=== PATIENT | female | born 1945 | race Caucasian/White ===

== ENCOUNTER 2017-09-18 04:48 | Outpatient (CLI) | payer MEDICARE, MEDICAID ==
[~2017-09-18 04:48] MED LIST: CITA20TA11 PO; GABA300C PO; GEMF600T3 PO; HCTZ25T PO; HYDR1TAB PO; LEVO75TA57 PO; LIT300C PO; LOSA50TA3 PO; PRAV40TA3 PO
== END 2017-09-18 23:59 | disposition home or self-care (01) ==
LOC: DIABETIC 04:48
PROVIDERS: ATTEND Internal Medicine
DX: E11.9 Type 2 diabetes mellitus without complications (principal)
CPT/HCPCS: G0108

== ENCOUNTER 2017-12-20 01:21 | Outpatient (CLI) | payer MEDICARE, MEDICAID ==
[~2017-12-20 01:21] MED LIST changes: +CITA-278 PO; -CITA20TA11 PO
== END 2017-12-20 23:59 | disposition home or self-care (01) ==
LOC: DIABETIC 01:21
PROVIDERS: ATTEND Internal Medicine
DX: E11.65 Type 2 diabetes mellitus with hyperglycemia (principal); I11.0 Hypertensive heart disease with heart failure; I50.9 Heart failure, unspecified
CPT/HCPCS: G0108

== ENCOUNTER 2018-04-03 08:32 | Emergency (ER) | payer MEDICARE, MEDICAID ==
[~2018-04-03] VITALS: Ht 167.6 cm; Wt 69.2 kg
[~2018-04-03 08:32] MED LIST changes: -GEMF600T3 PO; +GEMF600T4 PO
[2018-04-03 08:34] VITALS: BP 130/72
[2018-04-03] MEDS ORDERED: ACET1TAB12 PO (10:15)
== END 2018-04-03 10:27 | disposition home or self-care (01) ==
LOC: ER 08:33
DX: S09.90XA Unspecified injury of head, initial encounter (principal); M54.2 Cervicalgia; M54.9 Dorsalgia, unspecified; E11.42 Type 2 diabetes mellitus with diabetic polyneuropathy; E78.00 Pure hypercholesterolemia, unspecified; K21.9 Gastro-esophageal reflux disease without esophagitis; Z90.710 Acquired absence of both cervix and uterus; Z60.2 Problems related to living alone; Z88.8 Allergy status to other drugs, medicaments and biological substances; Z79.899 Other long term (current) drug therapy; W01.198A Fall on same level from slipping, tripping and stumbling with subsequent striking against other object, initial encounter; Y93.89 Activity, other specified; Y92.89 Other specified places as the place of occurrence of the external cause; Y99.8 Other external cause status
CPT/HCPCS: 70450; 72070; 72125; 99284

== ENCOUNTER 2018-06-25 03:54 | Outpatient (CLI) | payer MEDICARE, MEDICAID ==
[~2018-06-25 03:54] MED LIST changes: +ACET1TAB12 PO
== END 2018-06-25 23:59 | disposition home or self-care (01) ==
LOC: DIABETIC 03:54
PROVIDERS: ATTEND Internal Medicine
DX: E11.65 Type 2 diabetes mellitus with hyperglycemia (principal); I11.0 Hypertensive heart disease with heart failure; I50.9 Heart failure, unspecified; Z98.890 Other specified postprocedural states; Z95.0 Presence of cardiac pacemaker; Z90.710 Acquired absence of both cervix and uterus; Z88.8 Allergy status to other drugs, medicaments and biological substances
CPT/HCPCS: G0108

== ENCOUNTER 2018-10-03 02:26 | Outpatient (CLI) | payer MEDICARE, MEDICAID ==
[~2018-10-03 02:26] MED LIST changes: -CITA-278 PO; +CITA20TA28 PO; -GEMF600T4 PO; +GEMF600T89 PO
== END 2018-10-03 23:59 | disposition home or self-care (01) ==
LOC: DIABETIC 02:26
PROVIDERS: ATTEND Internal Medicine
DX: E11.65 Type 2 diabetes mellitus with hyperglycemia (principal); I10 Essential (primary) hypertension; Z79.82 Long term (current) use of aspirin; Z79.84 Long term (current) use of oral hypoglycemic drugs; Z88.8 Allergy status to other drugs, medicaments and biological substances
CPT/HCPCS: G0108

== ENCOUNTER 2019-03-10 21:48 | Inpatient (IN) | payer MEDICARE, MEDICAID ==
[~2019-03-10] VITALS: Ht 165.1 cm; Wt 74.0 kg
[2019-03-10] MEDS ORDERED: pantoprazole IV 80 MG in normal saline 100ml IV soln 100 ML IV ONE (22:05)
[2019-03-10] MEDS ORDERED: normal saline 1000ML IV soln IV ONE (22:05)
[2019-03-10] MEDS ORDERED: metoclopramide 5 mg/ml inj IV ONE (22:05)
[2019-03-10 22:31] LABS: BASOPHILS % (AUTO) 0.3 % (0-1); EOSINOPHILS # (AUTO) 0.1 X10'3 (0-0.9); EOSINOPHILS % (AUTO) 0.8 % (0-6); HEMATOCRIT 47.5 % (35.0-45.0); LYMPHOCYTES # (AUTO) 1.3 X10'3 (1.1-4.8); LYMPHOCYTES % (AUTO) 9.8 % (21-51); MEAN CORPUSCULAR HEMOGLOBIN 31.5 PG (27.0-31.0); MEAN CORPUSCULAR HGB CONC 33.7 g/dL (33.0-36.5); MEAN CORPUSCULAR VOLUME 93.5 FL (78-98); MEAN PLATELET VOLUME 7.3 FL (7.4-10.4); MONOCYTES # (AUTO) 0.5 X10'3 (0-0.9); MONOCYTES % (AUTO) 3.8 % (2-12); NEUTROPHILS # (AUTO) 11.1 X10'3 (1.8-7.7); NEUTROPHILS % (AUTO) 85.3 % (42-75); PLATELET COUNT 201 X10'3 (140-440); RED BLOOD COUNT 5.08 X10'6 (4.20-5.60); RED CELL DISTRIBUTION WIDTH 13.3 % (11.5-14.5)
[2019-03-10] MEDS ORDERED: pantoprazole 40 MG vial IV ONE (22:35)
--- NOTE | 2019-03-10 22:47 | NUR ---
PT UNABLE TO VOID FOR UA AT THIS TIME, FLUID BOLUS INFUSING.
[2019-03-10 22:49] LABS: ALANINE AMINOTRANSFERASE 39 U/L (12-78); ALBUMIN 4.4 G/DL (3.4-5.0); ALBUMIN/GLOBULIN RATIO 1.2 (1.1-1.5); ALKALINE PHOSPHATASE 55 IU/L (46-116); ANION GAP 10 (8-16); ASPARTATE AMINO TRANSFERASE 29 U/L (10-37); BILIRUBIN,TOTAL 0.7 MG/DL (0.1-1.0); BLOOD UREA NITROGEN 23 MG/DL (7-18); CALCIUM 10.5 MG/DL (8.5-10.1); CHLORIDE 107 MMOL/L (99-107); CREATININE 1.28 MG/DL (0.40-0.90); GLUCOSE 161 MG/DL (70-104); POTASSIUM 4.1 MMOL/L (3.5-5.1); SODIUM 143 MMOL/L (135-145); TOTAL CARBON DIOXIDE 26.1 MMOL/L (24-32); TOTAL PROTEIN 8.2 G/DL (6.4-8.2); eGFR 41 ML/MIN
--- NOTE | 2019-03-10 23:35 | NUR ---
Donaldo WARE TALKING WITH PT ABOUT PLAN OF CARE, PLAN FOR NG TUBE PLACEMENT AND ADMISSION. PT PROVIDED US WITH A LIST OF HOME MEDS. CURRENT VSS.
[2019-03-10] MEDS ORDERED: magnesium Cl slow-release 64mg tablet PO PRN (23:45)
[2019-03-10] MEDS ORDERED: mag hydrox/Alum hydrox/simeth 30ml oral suspension PO PRN (23:45)
[2019-03-10] MEDS ORDERED: magnesium hydroxide 30ml (MOM) UD suspension PO PRN (23:45)
[2019-03-10] MEDS ORDERED: potassium Cl 20 mEq SR tablet PO PRN ×2 (23:45)
[2019-03-10] MEDS ORDERED: ondansetron/PF 4mg/2ml inj IV PRN (23:45)
[2019-03-10] MEDS ORDERED: magnesium 4gm in 100ml NS 100 ML IV PRN (23:45)
[2019-03-10] MEDS ORDERED: HYDROcodone/acetaminophen 5mg/325mg tablet PO PRN (23:45)
[2019-03-10] MEDS ORDERED: HYDROcodone/acetaminophen 10/325mg tab PO PRN (23:45)
[2019-03-10] MEDS ORDERED: acetaminophen 325mg tablet PO PRN (23:45)
[2019-03-10] MEDS ORDERED: magnesium 2GM in 50ml NS 50 ML IV PRN (23:45)
[2019-03-10] MEDS ORDERED: potassium CL 10mEq/100ml bag 100 ML IV PRN ×2 (23:45)
[2019-03-10] MEDS ORDERED: morphine 2 MG/ML inj. syringe IV PRN ×2 (23:45)
[2019-03-10 23:47] LABS: CLARITY,URINE CLEAR (Clear); COLOR,URINE YELLOW (Yellow); GLUCOSE, URINE NEGATIVE (Neg); KETONES,URINE NEGATIVE (Neg); LEUKOCYTE ESTERASE ,URINE NEGATIVE (Neg); NITRITES, URINE NEGATIVE (Neg); OCCULT BLOOD,URINE NEGATIVE (Neg); PH,URINE 5.5 (4.8-8.0); PROTEIN,URINE NEGATIVE (Neg); UA COLLECTION TYPE VOIDED; UROBILINOGEN,URINE 0.2 E.U/dL (0.2-1.0)
[2019-03-10] MEDS ORDERED: IBUP-2697 PO (23:56)
[2019-03-10] MEDS ORDERED: VITA200C68 PO (23:56)
[2019-03-10] MEDS ORDERED: ASPI-1265 PO (23:56)
[2019-03-10] MEDS ORDERED: ATOR80TA PO (23:56)
[2019-03-10] MEDS ORDERED: LITH300T3 PO (23:56)
[2019-03-10] MEDS ORDERED: LACT1CAP65 PO (23:56)
[2019-03-10] MEDS ORDERED: MAGN500C16 PO (23:56)
[2019-03-10] MEDS ORDERED: POTA20PA40 PO (23:56)
[2019-03-10] MEDS ORDERED: GABA600T13 PO (23:56)
[2019-03-10] MEDS ORDERED: LEVO50TA PO (23:56)
[2019-03-10] MEDS ORDERED: HYDR-4353 PO (23:56)
[2019-03-10] MEDS ORDERED: IBUP-24 PO (23:56)
[2019-03-10] MEDS ORDERED: METF500T PO (23:56)
[2019-03-11] VITALS (8 sets, daily range): BP systolic 106–202; BP diastolic 67–108
--- NOTE | 2019-03-11 00:03 | NUR ---
DR. KENDRICK AT BEDSIDE FOR ADMISSION. 18 DIVEHI NG SALEM SUMP IN PLACE TO RIGHT NARES. TOTAL OUT UPON PLACEMENT 300 CC'S DARK BROWN THICK FLUID. STABLE VS. RERPOTS THE PAIN WAS 10 OUT OF 10 AND NOW 2 OUT OF 10.
[2019-03-11] MEDS: normal saline 1000ml 1,000 ML IV SCH ×3 (01:07→20:43)
--- NOTE | 2019-03-11 01:51 | NUR ---
received report from dae. pt to room 340B via [facility]. oriented to room and call light. will continue to monitor.
[2019-03-11] MEDS ORDERED: dextrose 50%-water 50ml dispensing syringe IV PRN ×2 (02:20)
[2019-03-11] MEDS ORDERED: insulin Lispro (HumaLOG) vial - multi-dose SQ SCH (02:20)
[2019-03-11] MEDS ORDERED: glucagon, human recombinant 1mg kit SUBCUT PRN (02:20)
[2019-03-11] MEDS ORDERED: dextrose ORAL solution 15 GM/59 ML bottle PO PRN ×2 (02:20)
[2019-03-11] MEDS ORDERED: MESSAGE TO PHARMACY PO ONE (02:20)
[2019-03-11 05:38] LABS: ALBUMIN 3.8 G/DL (3.4-5.0); ANION GAP 10 (8-16); BLOOD UREA NITROGEN 20 MG/DL (7-18); BUN/CREATININE RATIO 17.9 (6.6-38.0); CALCIUM 9.4 MG/DL (8.5-10.1); CHLORIDE 111 MMOL/L (99-107); CREATININE 1.12 MG/DL (0.40-0.90); GLUCOSE 149 MG/DL (70-104); MAGNESIUM 1.7 MG/DL (1.5-2.4); POTASSIUM 4.3 MMOL/L (3.5-5.1); SODIUM 146 MMOL/L (135-145); eGFR 48 ML/MIN
--- NOTE | 2019-03-11 06:13 | NUR ---
Problems reprioritized. Patient report given, questions answered & plan of care reviewed with PEYMAN Dowling. Addendum: 03/11/19 at 0614 by Peg Oconnell RN Amended: Links added.
[2019-03-11 06:14] LABS: BASOPHILS % (AUTO) 0.2 % (0-1); EOSINOPHILS % (AUTO) 0.3 % (0-6); HEMATOCRIT 44.9 % (35.0-45.0); HEMOGLOBIN 15.2 g/dl (12.0-16.0); LYMPHOCYTES # (AUTO) 1.4 X10'3 (1.1-4.8); LYMPHOCYTES % (AUTO) 11.4 % (21-51); MEAN CORPUSCULAR HEMOGLOBIN 31.3 PG (27.0-31.0); MEAN CORPUSCULAR HGB CONC 33.9 g/dL (33.0-36.5); MEAN CORPUSCULAR VOLUME 92.5 FL (78-98); MEAN PLATELET VOLUME 7.3 FL (7.4-10.4); MONOCYTES # (AUTO) 0.7 X10'3 (0-0.9); MONOCYTES % (AUTO) 5.4 % (2-12); NEUTROPHILS # (AUTO) 10.4 X10'3 (1.8-7.7); NEUTROPHILS % (AUTO) 82.7 % (42-75); PLATELET COUNT 200 X10'3 (140-440); RED BLOOD COUNT 4.86 X10'6 (4.20-5.60); RED CELL DISTRIBUTION WIDTH 13.2 % (11.5-14.5); WHITE BLOOD COUNT 12.6 X10'3 (4.5-11.0)
--- NOTE | 2019-03-11 06:38 | NUR ---
Patient in room [facility]. I have received report from PEYMAN Dowling and had the opportunity to ask questions and assume patient care.
[2019-03-11] MEDS: K and/or MAG REPLACEMENT MC SCH (08:00)
[2019-03-11] MEDS: lithium carbonate 150mg capsule PO SCH (08:00)
[2019-03-11] MEDS: ibuprofen 200mg tablet PO SCH ×3 (08:00→20:00)
[2019-03-11] MEDS: atorvastatin 20mg tablet PO SCH (08:00)
[2019-03-11] MEDS: citalopram 20mg tablet PO SCH (08:00)
[2019-03-11] MEDS: levoTHYROXINE 25mcg tablet PO SCH (08:00)
[2019-03-11] MEDS: gabapentin 300mg capsule PO SCH ×4 (08:00→20:56)
[2019-03-11] MEDS: enoxaparin 40mg/0.4ml syringe SQ SCH (08:59)
--- NOTE | 2019-03-11 11:32 | NUR ---
Called Dr. Perla to notify her of pt's elevated B/P. Order received for Vasotec 0.63mg IV now, ok to repeat once if SBP >160 after 30 minutes. Addendum: 03/11/19 at 1143 by Alondra Rodriguez RN Notified Dr. Perla about pt's lisinopril allergy & Vasotec interaction with lithium. New order received for hydralazine 5mg IV due now, ok to repeat one time if SBP >160 after 30 minutes. Vasotec order deleted.
[2019-03-11] MEDS ORDERED: hydrALAZINE 20mg/ml inj. IV ONE ×2 (11:45→13:15)
--- NOTE | 2019-03-11 13:26 | NUR ---
Called Dr. Minda singer Zofran ineffective for pt's nausea. Phenergan 12.5mg IV once ordered. Addendum: 03/11/19 at 1336 by Alondra Rodriguez RN Called pharmacist re new order, pharmacist stated drug is not in stock. Dr. Perla phoned again, order received for 10mg Compazine IV once.
[2019-03-11] MEDS ORDERED: proCHLORperazine 10 MG/2 ml inj IV ONE (13:40)
--- NOTE | 2019-03-11 14:15 | NUR ---
Pt dislodged NG tube after sneezing. Dr. Perla notified, order received to keep tube out and keep pt NPO until tomorrow morning.
--- NOTE | 2019-03-11 18:59 | NUR ---
Problems reprioritized. Patient report given, questions answered & plan of care reviewed with PEYMAN Cummings.
--- NOTE | 2019-03-11 19:00 | NUR ---
Patient in room [facility]. I have received report from PEYMAN Millan and had the opportunity to ask questions and assume patient care.
[2019-03-11] MEDS: acetaminophen 325mg tablet PO PRN (19:51)
[2019-03-11] MEDS: pantoprazole 40 MG vial IV SCH (20:55)
[2019-03-11] MEDS: insulin glargine (Lantus) pen - multi-dose SQ SCH (21:00)
[2019-03-12] VITALS: BP 149/70
--- NOTE | 2019-03-12 01:16 | NUR ---
IV start attempted 2x, when another nurse went in to attempt, patient requested to try tomorrow.
[2019-03-12] MEDS: ibuprofen 200mg tablet PO SCH ×4 (02:00→19:17)
[2019-03-12] MEDS: acetaminophen 325mg tablet PO PRN (03:30)
[2019-03-12 05:19] LABS: BASOPHILS % (AUTO) 0.5 % (0-1); EOSINOPHILS # (AUTO) 0.2 X10'3 (0-0.9); EOSINOPHILS % (AUTO) 2.9 % (0-6); HEMATOCRIT 42.5 % (35.0-45.0); HEMOGLOBIN 14.2 g/dl (12.0-16.0); LYMPHOCYTES # (AUTO) 1.8 X10'3 (1.1-4.8); LYMPHOCYTES % (AUTO) 22.8 % (21-51); MEAN CORPUSCULAR HEMOGLOBIN 31.1 PG (27.0-31.0); MEAN CORPUSCULAR HGB CONC 33.5 g/dL (33.0-36.5); MEAN CORPUSCULAR VOLUME 92.8 FL (78-98); MEAN PLATELET VOLUME 7.2 FL (7.4-10.4); MONOCYTES # (AUTO) 0.6 X10'3 (0-0.9); MONOCYTES % (AUTO) 7.2 % (2-12); NEUTROPHILS # (AUTO) 5.3 X10'3 (1.8-7.7); NEUTROPHILS % (AUTO) 66.6 % (42-75); PLATELET COUNT 170 X10'3 (140-440); RED BLOOD COUNT 4.58 X10'6 (4.20-5.60); RED CELL DISTRIBUTION WIDTH 13.4 % (11.5-14.5); WHITE BLOOD COUNT 7.9 X10'3 (4.5-11.0)
[2019-03-12 05:25] LABS: ALBUMIN 3.3 G/DL (3.4-5.0); ANION GAP 8 (8-16); BLOOD UREA NITROGEN 14 MG/DL (7-18); BUN/CREATININE RATIO 15.6 (6.6-38.0); CALCIUM 8.5 MG/DL (8.5-10.1); CHLORIDE 112 MMOL/L (99-107); GLUCOSE 129 MG/DL (70-104); MAGNESIUM 1.7 MG/DL (1.5-2.4); POTASSIUM 3.6 MMOL/L (3.5-5.1); SODIUM 146 MMOL/L (135-145); TOTAL CARBON DIOXIDE 25.7 MMOL/L (24-32); eGFR 62 ML/MIN
--- NOTE | 2019-03-12 06:14 | NUR ---
Problems reprioritized. Patient report given, questions answered & plan of care reviewed with PEYMAN Beach.
[2019-03-12] MEDS: normal saline 1000ml 1,000 ML IV SCH ×2 (06:29→16:38)
--- NOTE | 2019-03-12 06:30 | NUR ---
Patient in room [facility]. I have received report from PEYMAN Cummings and had the opportunity to ask questions and assume patient care.
[2019-03-12] MEDS: gabapentin 300mg capsule PO SCH ×3 (07:34→19:18)
[2019-03-12] MEDS: lithium carbonate 150mg capsule PO SCH (07:35)
[2019-03-12] MEDS: levoTHYROXINE 25mcg tablet PO SCH (07:36)
[2019-03-12] MEDS: citalopram 20mg tablet PO SCH (07:36)
[2019-03-12] MEDS: enoxaparin 40mg/0.4ml syringe SQ SCH (07:37)
[2019-03-12] MEDS: K and/or MAG REPLACEMENT MC SCH (07:37)
[2019-03-12] MEDS: atorvastatin 20mg tablet PO SCH (07:37)
[2019-03-12] MEDS: pantoprazole 40 MG vial IV SCH ×2 (07:37→19:17)
[2019-03-12 08:00] VITALS: BP 158/92
[2019-03-12 11:00] VITALS: BP 118/59
--- NOTE | 2019-03-12 17:17 | NUR ---
VS stable throughout the day. c/o chronic back pain, manageable with scheduled Ibuprofen. Accu check ACHS for DM2, has not met protocol. Pt transitioned to clear liquid diet from NPO per MD. First meal at dinner. Pt ambulated around the unit several times today independently. Safety maintained.
[2019-03-12 18:00] VITALS: BP 160/71
--- NOTE | 2019-03-12 18:18 | NUR ---
Problems reprioritized. Patient report given, questions answered & plan of care reviewed with PEYMAN Cummings.
--- NOTE | 2019-03-12 18:19 | NUR ---
Patient in room [facility]. I have received report from PEYMAN Beach and had the opportunity to ask questions and assume patient care.
[2019-03-12] MEDS: insulin glargine (Lantus) pen - multi-dose SQ SCH (21:00)
[2019-03-13 00:13] VITALS: BP 148/73
[2019-03-13] MEDS: normal saline 1000ml 1,000 ML IV SCH ×2 (02:24→12:12)
[2019-03-13] MEDS: ibuprofen 200mg tablet PO SCH ×3 (02:25→14:58)
[2019-03-13 04:52] LABS: BASOPHILS % (AUTO) 0.5 % (0-1); EOSINOPHILS # (AUTO) 0.3 X10'3 (0-0.9); HEMATOCRIT 41.9 % (35.0-45.0); HEMOGLOBIN 14.1 g/dl (12.0-16.0); LYMPHOCYTES % (AUTO) 23.2 % (21-51); MEAN CORPUSCULAR HEMOGLOBIN 31.5 PG (27.0-31.0); MEAN CORPUSCULAR HGB CONC 33.8 g/dL (33.0-36.5); MEAN CORPUSCULAR VOLUME 93.4 FL (78-98); MEAN PLATELET VOLUME 7.6 FL (7.4-10.4); MONOCYTES # (AUTO) 0.7 X10'3 (0-0.9); MONOCYTES % (AUTO) 8.5 % (2-12); NEUTROPHILS # (AUTO) 5.6 X10'3 (1.8-7.7); NEUTROPHILS % (AUTO) 64.8 % (42-75); PLATELET COUNT 168 X10'3 (140-440); RED BLOOD COUNT 4.49 X10'6 (4.20-5.60); RED CELL DISTRIBUTION WIDTH 13.1 % (11.5-14.5); WHITE BLOOD COUNT 8.6 X10'3 (4.5-11.0)
[2019-03-13 05:55] LABS: ALBUMIN 3.4 G/DL (3.4-5.0); ANION GAP 9 (8-16); BLOOD UREA NITROGEN 11 MG/DL (7-18); BUN/CREATININE RATIO 11.7 (6.6-38.0); CALCIUM 8.8 MG/DL (8.5-10.1); CHLORIDE 110 MMOL/L (99-107); CREATININE 0.94 MG/DL (0.40-0.90); GLUCOSE 143 MG/DL (70-104); MAGNESIUM 1.8 MG/DL (1.5-2.4); POTASSIUM 3.6 MMOL/L (3.5-5.1); SODIUM 147 MMOL/L (135-145); TOTAL CARBON DIOXIDE 28.2 MMOL/L (24-32); eGFR 59 ML/MIN
--- NOTE | 2019-03-13 06:16 | NUR ---
Problems reprioritized. Patient report given, questions answered & plan of care reviewed with PEYMAN Lepe.
--- NOTE | 2019-03-13 06:30 | NUR ---
Patient in room [facility]. I have received report from Emiliano MORLEY and had the opportunity to ask questions and assume patient care.
[2019-03-13 07:26] VITALS: BP 146/81
[2019-03-13] MEDS: K and/or MAG REPLACEMENT MC SCH (08:00)
[2019-03-13] MEDS: levoTHYROXINE 25mcg tablet PO SCH (09:16)
[2019-03-13] MEDS: gabapentin 300mg capsule PO SCH (09:17)
[2019-03-13] MEDS: citalopram 20mg tablet PO SCH (09:17)
[2019-03-13] MEDS: atorvastatin 20mg tablet PO SCH (09:18)
[2019-03-13] MEDS: lithium carbonate 150mg capsule PO SCH (09:19)
[2019-03-13] MEDS: pantoprazole 40 MG vial IV SCH (09:21)
[2019-03-13] MEDS: enoxaparin 40mg/0.4ml syringe SQ SCH (09:21)
[2019-03-13 11:00] VITALS: BP 122/76
[2019-03-13] MEDS ORDERED: PANT40SU2 PO (13:10)
--- NOTE | 2019-03-13 17:30 | NUR ---
Patient discharge was done with patient in room. Patient expressed verbal understanding of new medications and discharge teaching about small bowel obstruction. Patient was given our diabetic survival guide as well as current A1c . Patients IV was taken out upon discharge and site showed minimal bleeding and canula was intact upon removal. Patient went to lobby via wheel chair and transported home in private vehicle.
== END 2019-03-13 17:15 | disposition home or self-care (01) | DRG 389 ==
LOC: ER 21:48 → SUR 3N 03-11 00:23 → CMPBEDREQ 03-11 19:35
PROVIDERS: ADMIT Hospitalist; ATTEND Internal Medicine
PROC: 0D9670Z Drainage of Stomach with Drainage Device, Via Natural or Artificial Opening (ICD-10-PCS; principal; 2019-03-11)
DX: K56.600 Partial intestinal obstruction, unspecified as to cause (principal); N17.9 Acute kidney failure, unspecified; K21.9 Gastro-esophageal reflux disease without esophagitis; E78.00 Pure hypercholesterolemia, unspecified; M54.9 Dorsalgia, unspecified; E11.42 Type 2 diabetes mellitus with diabetic polyneuropathy; E78.5 Hyperlipidemia, unspecified; E03.9 Hypothyroidism, unspecified; D72.829 Elevated white blood cell count, unspecified; K80.20 Calculus of gallbladder without cholecystitis without obstruction; F31.9 Bipolar disorder, unspecified; G89.4 Chronic pain syndrome; Z60.2 Problems related to living alone; Z88.8 Allergy status to other drugs, medicaments and biological substances; Z79.890 Hormone replacement therapy; Z79.899 Other long term (current) drug therapy; Z90.710 Acquired absence of both cervix and uterus; Z79.82 Long term (current) use of aspirin; Z79.84 Long term (current) use of oral hypoglycemic drugs
CPT/HCPCS: 36415; 71045; 74176; 80048; 80053; 80178; 81003; 82948; 83036; 83735; 84443; 85025; 85610; 86885; 86900; 86901; 87081; 93005; 96361; 96374; 96375; 99285; C9113; G0378; J0360; J0780; J1650; J1815; J2405; J2765; J7030

== ENCOUNTER 2019-03-25 02:09 | Outpatient (CLI) | payer MEDICARE, MEDICAID ==
[~2019-03-25 02:09] MED LIST changes: -ACET1TAB12 PO; +ATOR80TA PO; -GABA300C PO; +GABA600T13 PO; -GEMF600T89 PO; -HCTZ25T PO; -HYDR1TAB PO; +LEVO50TA PO; -LEVO75TA57 PO; -LIT300C PO; +LITH300T3 PO; -LOSA50TA3 PO; +PANT40SU2 PO; -PRAV40TA3 PO
== END 2019-03-25 23:59 | disposition home or self-care (01) ==
LOC: DIABETIC 02:09
PROVIDERS: ATTEND Family Medicine
DX: E11.65 Type 2 diabetes mellitus with hyperglycemia (principal); Z79.82 Long term (current) use of aspirin; Z79.02 Long term (current) use of antithrombotics/antiplatelets; Z79.84 Long term (current) use of oral hypoglycemic drugs; Z79.899 Other long term (current) drug therapy; Z79.891 Long term (current) use of opiate analgesic; Z88.8 Allergy status to other drugs, medicaments and biological substances; Z95.0 Presence of cardiac pacemaker; Z72.89 Other problems related to lifestyle
CPT/HCPCS: G0108

== ENCOUNTER 2019-06-24 05:01 | Outpatient (CLI) | payer MEDICARE, MEDICAID | END 2019-06-24 23:59 | disposition home or self-care (01) | LOC: DIABETIC 05:01 | PROVIDERS: ATTEND Family Medicine | DX: E11.65 Type 2 diabetes mellitus with hyperglycemia (principal); Z79.82 Long term (current) use of aspirin | CPT/HCPCS: G0108 ==

== ENCOUNTER 2019-09-23 04:21 | Outpatient (CLI) | payer MEDICARE, MEDICAID | END 2019-09-23 23:59 | disposition home or self-care (01) | LOC: DIABETIC 04:21 | PROVIDERS: ATTEND Family Medicine | DX: Z30.2 Encounter for sterilization (principal) ==

== ENCOUNTER 2020-11-18 10:47 | Emergency (ER) | payer MEDICARE, MEDICAID ==
[~2020-11-18] VITALS: Ht 162.6 cm; Wt 66.4 kg
[2020-11-18] MEDS ORDERED: normal saline 1000ML IV soln IVB ONE (11:15)
[2020-11-18] MEDS ORDERED: ondansetron/PF 4mg/2ml inj IV ONE (11:15)
[2020-11-18 11:38] LABS: BASOPHILS % (AUTO) 0.3 % (0-1); EOSINOPHILS # (AUTO) 0.3 X10'3 (0-0.9); EOSINOPHILS % (AUTO) 2.6 % (0-6); HEMATOCRIT 49.1 % (35.0-45.0); HEMOGLOBIN 16.9 g/dl (12.0-16.0); LYMPHOCYTES # (AUTO) 1.6 X10'3 (1.1-4.8); LYMPHOCYTES % (AUTO) 15.8 % (21-51); MEAN CORPUSCULAR HEMOGLOBIN 32.5 PG (27.0-31.0); MEAN CORPUSCULAR HGB CONC 34.3 g/dL (33.0-36.5); MEAN CORPUSCULAR VOLUME 94.6 FL (78-98); MEAN PLATELET VOLUME 7.5 FL (7.4-10.4); MONOCYTES # (AUTO) 0.7 X10'3 (0-0.9); MONOCYTES % (AUTO) 7.2 % (2-12); NEUTROPHILS # (AUTO) 7.6 X10'3 (1.8-7.7); NEUTROPHILS % (AUTO) 74.1 % (42-75); PLATELET COUNT 213 X10'3 (140-440); WHITE BLOOD COUNT 10.3 X10'3 (4.5-11.0)
[2020-11-18 11:53] LABS: ALANINE AMINOTRANSFERASE 27 U/L (12-78); ALBUMIN 3.9 G/DL (3.4-5.0); ALKALINE PHOSPHATASE 67 IU/L (46-116); ANION GAP 12 (8-16); ASPARTATE AMINO TRANSFERASE 22 U/L (10-37); BILIRUBIN,TOTAL 0.7 MG/DL (0.1-1.0); BLOOD UREA NITROGEN 27 MG/DL (7-18); CALCIUM 9.2 MG/DL (8.5-10.1); CHLORIDE 107 MMOL/L (99-107); CREATININE 1.08 MG/DL (0.40-0.90); GLUCOSE 177 MG/DL (70-104); LIPASE 255 U/L (73-393); POTASSIUM 3.7 MMOL/L (3.5-5.1); SODIUM 144 MMOL/L (135-145); TOTAL CARBON DIOXIDE 24.8 MMOL/L (24-32); TOTAL PROTEIN 7.7 G/DL (6.4-8.2); eGFR 50 ML/MIN
[2020-11-18 12:01] LABS: CLARITY,URINE CLOUDY (Clear); COLOR,URINE YELLOW (Yellow); GLUCOSE, URINE NEGATIVE (Neg); KETONES,URINE TRACE mg/dl (Neg); LEUKOCYTE ESTERASE ,URINE NEGATIVE (Neg); NITRITES, URINE NEGATIVE (Neg); OCCULT BLOOD,URINE NEGATIVE (Neg); PROTEIN,URINE NEGATIVE (Neg); UROBILINOGEN,URINE 0.2 E.U/dL (0.2-1.0)
[2020-11-18 12:02] LABS: UA COLLECTION TYPE CLN CATCH MIDSTREAM
[2020-11-18 12:12] LABS: MUCUS STRANDS FEW /LPF (Neg); SQUAMOUS EPITHELIAL CELL,UR FEW /LPF (FEW)
[2020-11-18 12:17] LABS: BACTERIA,URINE NONE SEEN /HPF (Neg); RBC,URINE 0-2 /HPF (0-2); WBC,URINE 0-4 /HPF (0-4)
[2020-11-18 12:20] LABS: CAL OXALATE CRYSTALS 3+ /HPF (NEGATIVE)
[2020-11-18] MEDS ORDERED: ONDA4TAB6 PO (12:42)
[2020-11-18 13:51] VITALS: BP 132/54
== END 2020-11-18 13:54 | disposition home or self-care (01) ==
LOC: ER 10:47
DX: R19.7 Diarrhea, unspecified (principal); R11.0 Nausea; R63.4 Abnormal weight loss; E11.42 Type 2 diabetes mellitus with diabetic polyneuropathy; E78.00 Pure hypercholesterolemia, unspecified; K21.9 Gastro-esophageal reflux disease without esophagitis; G89.29 Other chronic pain; F31.9 Bipolar disorder, unspecified; Z90.710 Acquired absence of both cervix and uterus; Z60.2 Problems related to living alone; Z88.8 Allergy status to other drugs, medicaments and biological substances; Z79.899 Other long term (current) drug therapy
CPT/HCPCS: 36415; 80053; 81001; 83690; 85025; 96361; 96374; 99283; J2405; J7030

== ENCOUNTER 2024-08-25 15:49 | Inpatient (IN) | payer MEDICARE, MEDICAID ==
[~2024-08-25] VITALS: Ht 162.6 cm; Wt 55.0 kg
[~2024-08-25 15:49] MED LIST changes: +ATOR-429 PO; -ATOR80TA PO; +GABA-1405 PO; -GABA600T13 PO; +ONDA4TAB6 PO
[2024-08-25] MEDS: NORepinephrine 8mg/ 250ml NS 250 ML IV ONE ×2 (16:01→16:09)
[2024-08-25] MEDS ORDERED: naloxone 2mg/2ml inj IV STA (16:03)
[2024-08-25] MEDS: naloxone 2mg/2ml inj IV STA (16:06)
[2024-08-25] MEDS: ringers solution, lacted 1,000 ML IV ONE ×2 (16:06→16:17)
[2024-08-25 16:33] LABS: BASOPHILS % (AUTO) 0.5 % (0-1); EOSINOPHILS # (AUTO) 0.1 X10'3 (0-0.9); EOSINOPHILS % (AUTO) 0.7 % (0-6); HEMATOCRIT 35.4 % (35.0-45.0); HEMOGLOBIN 12.3 g/dl (12.0-16.0); LYMPHOCYTES # (AUTO) 1.5 X10'3 (1.1-4.8); MEAN CORPUSCULAR HEMOGLOBIN 32.6 PG (27.0-31.0); MEAN CORPUSCULAR HGB CONC 34.6 g/dL (33.0-36.5); MEAN CORPUSCULAR VOLUME 94.1 FL (78-98); MEAN PLATELET VOLUME 7.2 FL (7.4-10.4); MONOCYTES # (AUTO) 0.6 X10'3 (0-0.9); MONOCYTES % (AUTO) 7.4 % (2-12); NEUTROPHILS % (AUTO) 73.4 % (42-75); PLATELET COUNT 318 X10'3 (140-440); RED BLOOD COUNT 3.77 X10'6 (4.20-5.60); RED CELL DISTRIBUTION WIDTH 13.3 % (11.5-14.5); WHITE BLOOD COUNT 8.1 X10'3 (4.5-11.0)
[2024-08-25 16:37] LABS: ALANINE AMINOTRANSFERASE 34 U/L (12-78); ALBUMIN 2.5 G/DL (3.4-5.0); ALBUMIN/GLOBULIN RATIO 0.6 (1.1-1.5); ALKALINE PHOSPHATASE 58 IU/L (46-116); ANION GAP 7 (8-16); ASPARTATE AMINO TRANSFERASE 21 U/L (10-37); BILIRUBIN,TOTAL 0.3 MG/DL (0.1-1.0); BLOOD UREA NITROGEN 24 MG/DL (7-18); BUN/CREATININE RATIO 25.3 (10.0-20.0); CALCIUM 8.3 MG/DL (8.5-10.1); CHLORIDE 105 MMOL/L (99-107); CREATININE 0.95 MG/DL (0.40-0.90); GLUCOSE 271 MG/DL (70-104); POTASSIUM 4.4 MMOL/L (3.5-5.1); SODIUM 140 MMOL/L (135-145); TOTAL PROTEIN 6.4 G/DL (6.4-8.2); eCRCL 44 ML/MIN; eGFR 57 ML/MIN
[2024-08-25 16:38] LABS: BILIRUBIN,URINE NEGATIVE (Neg); CLARITY,URINE CLEAR (Clear); COLOR,URINE YELLOW (Yellow); GLUCOSE, URINE >=1000 mg/dl (Neg); KETONES,URINE NEGATIVE (Neg); LEUKOCYTE ESTERASE ,URINE NEGATIVE (Neg); NITRITES, URINE NEGATIVE (Neg); OCCULT BLOOD,URINE NEGATIVE (Neg); PROTEIN,URINE 30 mg/dl (Neg); UROBILINOGEN,URINE 0.2 E.U/dL (0.2-1.0)
[2024-08-25 16:46] LABS: ETHANOL < 10 MG/DL (<10); SALICYLATE 1.5 MG/DL (4.0-20.0); THYROID STIMULATING HORMONE 2.31 ulU/ml (0.34-4.50)
[2024-08-25 16:49] LABS: UA COLLECTION TYPE NON-SPECIFIED; URINE AMPHETAMINE SCREEN NEGATIVE (Neg); URINE BARBITUATE SCREEN NEGATIVE (Neg); URINE BENZODIAZEPINES SCREEN NEGATIVE (Neg); URINE CANNABINOID SCREEN NEGATIVE (Neg); URINE COCAINE SCREEN NEGATIVE (Neg); URINE METHADONE SCREEN NEGATIVE (Neg); URINE OPIATE SCREEN NEGATIVE (Neg); URINE PHENCYCLIDINE SCREEN NEGATIVE (Neg)
[2024-08-25 16:50] LABS: BACTERIA,URINE NONE SEEN /HPF (Neg); MUCUS STRANDS FEW /LPF (Neg); RBC,URINE NONE SEEN /HPF (0-2); SQUAMOUS EPITHELIAL CELL,UR FEW /LPF (FEW); WBC,URINE 0-4 /HPF (0-4)
[2024-08-25 16:52] LABS: ACETAMINOPHEN < 2.0 UG/ML (10-30)
[2024-08-25] MEDS ORDERED: SEMA1PEN3 SQ (17:35)
[2024-08-25] MEDS ORDERED: METF-1203 PO (17:35)
[2024-08-25] MEDS ORDERED: DAPA5TAB PO (21:31)
[2024-08-25] MEDS ORDERED: GABAPENTIN (21:31)
[2024-08-25] MEDS ORDERED: CLON0.1T PO (21:31)
[2024-08-26] VITALS (39 sets, daily range): BP systolic 68–163; BP diastolic 39–109; PULSE 60–79; RESP 10–20; O2SAT 92–99
[2024-08-26] MEDS: gabapentin 400mg capsule PO ONE (01:03)
[2024-08-26] MEDS: NORepinephrine 8mg/ 250ml NS 250 ML IV SCH (06:00)
[2024-08-26 06:15] LABS: BASOPHILS # (AUTO) 0.1 X10'3 (0-0.2); BASOPHILS % (AUTO) 0.6 % (0-1); EOSINOPHILS # (AUTO) 0.1 X10'3 (0-0.9); EOSINOPHILS % (AUTO) 0.9 % (0-6); HEMATOCRIT 37.7 % (35.0-45.0); HEMOGLOBIN 13.1 g/dl (12.0-16.0); LYMPHOCYTES # (AUTO) 1.6 X10'3 (1.1-4.8); LYMPHOCYTES % (AUTO) 18.3 % (21-51); MEAN CORPUSCULAR HEMOGLOBIN 32.7 PG (27.0-31.0); MEAN CORPUSCULAR HGB CONC 34.8 g/dL (33.0-36.5); MEAN CORPUSCULAR VOLUME 94.1 FL (78-98); MONOCYTES # (AUTO) 0.6 X10'3 (0-0.9); MONOCYTES % (AUTO) 7.5 % (2-12); NEUTROPHILS # (AUTO) 6.2 X10'3 (1.8-7.7); NEUTROPHILS % (AUTO) 72.7 % (42-75); PLATELET COUNT 296 X10'3 (140-440); RED BLOOD COUNT 4.01 X10'6 (4.20-5.60); RED CELL DISTRIBUTION WIDTH 12.9 % (11.5-14.5); WHITE BLOOD COUNT 8.5 X10'3 (4.5-11.0)
[2024-08-26 07:10] LABS: ALANINE AMINOTRANSFERASE 41 U/L (12-78); ALBUMIN 2.6 G/DL (3.4-5.0); ALBUMIN/GLOBULIN RATIO 0.6 (1.1-1.5); ALKALINE PHOSPHATASE 66 IU/L (46-116); ANION GAP 9 (8-16); ASPARTATE AMINO TRANSFERASE 27 U/L (10-37); BILIRUBIN,TOTAL 0.4 MG/DL (0.1-1.0); BLOOD UREA NITROGEN 20 MG/DL (7-18); CALCIUM 8.7 MG/DL (8.5-10.1); CHLORIDE 106 MMOL/L (99-107); CREATININE 0.69 MG/DL (0.40-0.90); GLUCOSE 176 MG/DL (70-104); MAGNESIUM 1.8 MG/DL (1.5-2.4); PHOSPHORUS 3.1 MG/DL (2.3-4.5); POTASSIUM 3.9 MMOL/L (3.5-5.1); SODIUM 140 MMOL/L (135-145); TOTAL CARBON DIOXIDE 25.2 MMOL/L (24-32); TOTAL PROTEIN 6.7 G/DL (6.4-8.2); eCRCL 60 ML/MIN; eGFR 83 ML/MIN
[2024-08-26] MEDS: normal saline 500ml IV soln 500 ML IV ONE (08:30)
[2024-08-26] MEDS: ringers solution, lacted 1,000 ML IV ONE (10:47)
[2024-08-26] MEDS ORDERED: mag hydrox/Alum hydrox/simeth 30ml oral suspension PO PRN (10:55)
[2024-08-26] MEDS ORDERED: magnesium sulf-water 2g/50mL 50 ML IV PRN (10:55)
[2024-08-26] MEDS ORDERED: ondansetron/PF 4mg/2ml inj IV PRN (10:55)
[2024-08-26] MEDS ORDERED: magnesium sulf-water 4G/100mL 100 ML IV PRN (10:55)
[2024-08-26] MEDS ORDERED: potassium Cl 20 mEq SR tablet PO PRN ×2 (10:55)
[2024-08-26] MEDS ORDERED: potassium Cl 40MEQ/1/2NS 520ml 520 ML IV PRN (10:55)
[2024-08-26] MEDS ORDERED: acetaminophen 325mg tablet PO PRN (10:55)
[2024-08-26] MEDS ORDERED: magnesium Cl slow-release 64mg tablet PO PRN (10:55)
[2024-08-26] MEDS ORDERED: DEXTROSE 15 GM of carb/4 tabs (each vial/BOTTLE has 4 tablets) PO PRN ×2 (11:00)
[2024-08-26] MEDS ORDERED: dextrose 50%-water 50ml dispensing syringe IV PRN ×2 (11:00)
[2024-08-26] MEDS ORDERED: glucagon, human recombinant 1mg kit SUBCUT PRN (11:00)
[2024-08-26] MEDS: SEMAGLUTIDE 1 MG SQ SCH (11:00)
[2024-08-26] MEDS: gabapentin 300mg capsule PO SCH (12:08)
[2024-08-26] MEDS: pantoprazole 40mg Tablet.DR PO SCH (12:08)
[2024-08-26 13:24] LABS: HEMOGLOBIN A1C 6.4 % (4.5-6.2)
[2024-08-26] MEDS ORDERED: DESV100T16 PO (16:06)
[2024-08-26] MEDS ORDERED: ALBU18HF2 INH (16:06)
[2024-08-26] MEDS ORDERED: BUDE10.26 INH (16:06)
[2024-08-26] MEDS ORDERED: SUMA25TA9 PO (16:06)
[2024-08-26] MEDS ORDERED: ESZO2TAB31 PO (16:06)
[2024-08-26] MEDS: normal saline 500ml IV soln 500 ML IV STA (18:02)
[2024-08-26] MEDS ORDERED: midodrine 5mg tablet PO PRN (18:25)
[2024-08-26] MEDS: normal saline 1000ml 1,000 ML IV SCH (18:30)
[2024-08-26] MEDS ORDERED: metFORMIN 500mg tablet PO SCH (20:00)
[2024-08-26] MEDS: K and/or MAG REPLACEMENT MC SCH (20:00)
[2024-08-27] VITALS (7 sets, daily range): BP systolic 117–140; BP diastolic 67–80; PULSE 61–82; RESP 11–18; TEMP 97.3–98.8; O2SAT 97–99
[2024-08-27] MEDS: DAPAGLIFLOZIN 5 MG PO SCH (08:00)
[2024-08-27] MEDS ORDERED: atorvastatin 20mg tablet PO SCH (08:00)
[2024-08-27] MEDS: enoxaparin 40mg/0.4ml syringe SUBCUT SCH (08:08)
[2024-08-27] MEDS: atorvastatin 10mg tablet PO SCH (08:08)
[2024-08-27] MEDS: levoTHYROXINE 25mcg tablet PO SCH (08:08)
[2024-08-28 02:00] VITALS: BP 113/62; PULSE 66; RESP 12; TEMP 97.7; O2SAT 95
[2024-08-28 06:00] VITALS: BP 148/76; PULSE 81; RESP 14; TEMP 97.7; O2SAT 98
[2024-08-28] MEDS: DAPAGLIFLOZIN 10MG TABLET PO SCH (07:54)
[2024-08-28] MEDS: atorvastatin 20mg tablet PO SCH (07:54)
[2024-08-28 08:00] VITALS: RESP 14; O2SAT 98
[2024-08-28] MEDS ORDERED: METF-1203 PO (10:42)
[2024-08-28 11:00] VITALS: BP 146/83; PULSE 91; RESP 16; TEMP 97.4; O2SAT 96
== END 2024-08-28 13:20 | disposition home or self-care (01) | DRG 917 ==
LOC: ER 15:49 → ED HOLD 08-26 00:21 → CICU 2S 08-26 05:24 → PCU 3S 08-27
PROVIDERS: ADMIT Surgery Surgical Critical Care; ATTEND Surgery Surgical Critical Care
DX: T46.5X2A Poisoning by other antihypertensive drugs, intentional self-harm, initial encounter (principal); R57.0 Cardiogenic shock; N17.9 Acute kidney failure, unspecified; E11.42 Type 2 diabetes mellitus with diabetic polyneuropathy; K21.9 Gastro-esophageal reflux disease without esophagitis; Z20.822 Contact with and (suspected) exposure to COVID-19; E78.00 Pure hypercholesterolemia, unspecified; F41.9 Anxiety disorder, unspecified; Z79.899 Other long term (current) drug therapy; Z88.8 Allergy status to other drugs, medicaments and biological substances; Z90.710 Acquired absence of both cervix and uterus; Z87.891 Personal history of nicotine dependence; Y92.89 Other specified places as the place of occurrence of the external cause
CPT/HCPCS: 36415; 80053; 80305; 80320; 80329; 81001; 82948; 83036; 83605; 83735; 84100; 84132; 84443; 85025; 87081; 87811; 93005; 93306; 99291; A4353; A4620; A6213; A6258; G0378; J1650; J2310; J7030; J7040; J7120